=== PATIENT | female | born 1970 ===

== ENCOUNTER → 2018-10-02 22:34 | Outpatient (REF) | payer OTHER, SELFPAY ==
[2018-10-02 23:34] LABS: Add Manual Diff / Slide Review NO; Basophils Absolute Auto 0 /uL (0-100); Basophils Percent Auto 0.6 % (0-2); Eosinophils Absolute Auto 100 /uL (0-450); Eosinophils Percent Auto 1.3 % (2-4); Hematocrit 39.2 % (36-46); Hemoglobin 12.9 g/dL (12.0-16.0); Lymphocytes Absolute Auto 1300 /uL (1100-4500); Lymphocytes Percent Auto 21.1 % (25-40); Mean Corpuscular Hemoglobin 27.4 PG (26-34); Monocytes Absolute Auto 400 /uL (0-900); Monocytes Percent Auto 5.5 % (3-14); Neutrophils Absolute Auto 4500 /uL (1500-7000); Neutrophils Percent Auto 71.5 % (50-75); Platelet Count 261 X10^3/uL (150-400); Red Blood Cell Count 4.72 X10^6/uL (4.0-5.2); White Blood Cell Count 6.3 X10^3/uL (4.5-11.0)
[2018-10-03 00:02] LABS: Ferritin 8.2 ng/mL (6.27-137)
[2018-10-03 00:08] LABS: T4 Total Thyroxine 9.31 ug/dL (5.5-11.0)
[2018-10-03 00:22] LABS: Thyroid Stimulating Hormone 1.38 uIU/mL (0.47-4.68)
== END ==
LOC: LAB 22:34
PROVIDERS: Visit Provider Naturopath
DX: E03.9 Hypothyroidism, unspecified (principal); R53.83 Other fatigue
CPT/HCPCS: 36415; 82728; 84436; 84443; 84481; 85025

== ENCOUNTER → 2018-10-03 | Outpatient (REF) | payer OTHER, SELFPAY | LOC: LAB 11:55 | PROVIDERS: Visit Provider Naturopath ==